=== PATIENT | female | born 1965 | race Caucasian/White ===

== ENCOUNTER → 2016-12-14 | Outpatient (CLI) | payer BC ==
[~2016-12-14] MED LIST: CALCTAB5 PO; VITAMIN
--- NOTE | 2016-12-14 15:51 | MAMMOGRAPHY REPORT ---
BILATERAL DIGITAL SCREENING MAMMOGRAM TOMOSYNTHESIS WITH CAD: 12/14/2016 CLINICAL HISTORY: Routine screening. Patient has no complaints. TECHNIQUE: Breast tomosynthesis in addition to standard 2D mammography was performed. Current study was also evaluated with a Computer Aided Detection (CAD) system. COMPARISON: Comparison is made to exams dated: 12/11/2015 mammogram, 11/21/2014 mammogram, 11/15/2013 ma mmogram, 11/07/2012 mammogram, 11/03/2011 mammogram, and 10/27/2010 mammogram - [facility]. BREAST COMPOSITION: The tissue of both breasts is extremely dense, which lowers the sensitivity of m ammography. FINDINGS: The parenchymal pattern is similar to prior mammograms. No developing mass, architectural distortion or cluster of suspicious microcalcifications is seen. IMPRESSION: ACR BI-RADS CATEGORY 2: BENIGN There is no mammographic evidence of malignancy. A 1 year screening mammogram is recommended. The pa tient will receive written notification of the results. Approximately 10% of breast cancers are not detected with mammography. A negative mammographic report should not delay biopsy if a clinically suggestive mass is present. Karli Belcher M.D. ay/:12/14/2016 15:44:09 Business Development Assistant: Liz JOSHI(R)(M), [facility] letter sent: Normal 1/2 BI-RADS Code: ACR BI-RADS Category 2: Benign
== END | disposition home or self-care (01) ==
LOC: C.MAMM 10:27
PROVIDERS: ATTEND Physician Assistant
DX: Z12.31 Encounter for screening mammogram for malignant neoplasm of breast (principal)

== ENCOUNTER 2021-12-05 11:53 | Inpatient (IN) ==
[2021-12-05] MEDS ORDERED: LORazepam 2 MG/1 ML VIAL IV STA (12:43)
[2021-12-05] MEDS ORDERED: PROCHLORPERAZINE 2 ML IV ONE (12:43)
[2021-12-05] MEDS ORDERED: SODIUM CHLORIDE 0.9% 1000ML 1,000 ML IV SCH (12:45)
--- NOTE | 2021-12-05 12:50 | Emergency Department Note ---
History of Present Illness General Chief complaint: Vertigo Stated complaint: DIZZINESS,VOMITING Time Seen by Provider: 12/05/21 12:21 History of Present Illness Maximum Pain Intensity: 10 56-year-old female presents to the ED with a chief complaint of vertigo since last Tuesday. She states that her symptoms started with a sudden onset of the room spinning associate with nausea and vomiting. She states that seem to get somewhat better and then she had another episode on . She has been vomiting through the weekend. She was here yesterday and had a work-up including blood work and CT scan of the brain. Everything was unremarkable. She was treated with some meclizine p.o. as well as some Zofran. She seemed to be feeling a little bit better when she left but states that her symptoms are significantly worse with any movement. The patient denies any injury or trauma. Denies any focal weakness. She states that she has vomited 3 times since this morning. Nothing seems to help or make it better. She did take her medicine this morning including Zofran and meclizine. Home Medications Medication Instructions Recorded Confirmed Type calcium carbonate 600 mg calcium 600 mg PO DAILY 12/04/21 12/05/21 History (1,500 mg) tablet (Calcium) multivitamin 1 tab PO DAILY 12/04/21 12/05/21 History ondansetron 4 mg disintegrating 4 mg PO Q6H PRN nausea and 12/04/21 12/05/21 Rx tablet vomiting #20 tabs vitamin E 268 mg (400 unit) capsule 268 mg PO DAILY 12/04/21 12/05/21 History Allergies Allergy/AdvReac Type Severity Reaction Status Date / Time latex Allergy Mild ALLERGY Verified 12/05/21 15:22 Penicillins Allergy Unknown Unknown Verified 12/05/21 15:22 Past Med/Surg History Medical History No significant past medical history Surgical History No history of previous surgery Social History Smoking Status: Never smoker Preferred Language: Lao Feels Safe at Home: Yes Review of Systems A total of 10 systems reviewed and were otherwise negative Physical Exam Vital Signs Vital Signs - 24 hr 12/05/21 11:57 12/05/21 13:50 12/05/21 12:44 Temperature 36.8 C Temperature Source Temporal Artery Scan Pulse Rate 66 Pulse Rate [Apical] Respiratory Rate 18 Respiratory Effort / Characteristics Respiratory Depth Blood Pressure 164/86 H Blood Pressure [Left Arm] Blood Pressure Mean 112 Blood Pressure Mean [Left Arm] Pulse Oximetry 100 98 98 Oxygen Delivery Method Room Air Room Air Room Air Sepsis Recent Fever Within 48 Hours No Sepsis New/Unexplained Change in Mental Status No Sepsis Action Taken by Nursing No Action Required 12/05/21 12:27 12/05/21 12:30 12/05/21 12:40 Temperature Temperature Source Pulse Rate 57 L 57 L 66 Pulse Rate [Apical] Respiratory Rate 13 15 Respiratory Effort / Characteristics Respiratory Depth Blood Pressure Blood Pressure [Left Arm] Blood Pressure Mean Blood Pressure Mean [Left Arm] Pulse Oximetry Oxygen Delivery Method Sepsis Recent Fever Within 48 Hours Sepsis New/Unexplained Change in Mental Status Sepsis Action Taken by Nursing 12/05/21 14:43 12/05/21 14:43 12/05/21 14:50 Temperature Temperature Source Pulse Rate 57 L 56 L Pulse Rate [Apical] Respiratory Rate 12 12 Respiratory Effort / Characteristics Respiratory Depth Blood Pressure 133/75 Blood Pressure [Left Arm] Blood Pressure Mean 94 Blood Pressure Mean [Left Arm] Pulse Oximetry Oxygen Delivery Method Sepsis Recent Fever Within 48 Hours Sepsis New/Unexplained Change in Mental Status Sepsis Action Taken by Nursing 12/05/21 15:00 12/05/21 15:00 12/05/21 15:10 Temperature Temperature Source Pulse Rate 61 55 L Pulse Rate [Apical] Respiratory Rate 21 12 Respiratory Effort / Characteristics Respiratory Depth Blood Pressure 131/73 Blood Pressure [Left Arm] Blood Pressure Mean 92 Blood Pressure Mean [Left Arm] Pulse Oximetry Oxygen Delivery Method Sepsis Recent Fever Within 48 Hours Sepsis New/Unexplained Change in Mental Status Sepsis Action Taken by Nursing 12/05/21 15:20 12/05/21 15:30 12/05/21 15:30 Temperature Temperature Source Pulse Rate 56 L 57 L Pulse Rate [Apical] Respiratory Rate 12 13 Respiratory Effort / Characteristics Respiratory Depth Blood Pressure 132/71 Blood Pressure [Left Arm] Blood Pressure Mean 91 Blood Pressure Mean [Left Arm] Pulse Oximetry Oxygen Delivery Method Sepsis Recent Fever Within 48 Hours Sepsis New/Unexplained Change in Mental Status Sepsis Action Taken by Nursing 12/05/21 15:40 12/05/21 15:50 12/05/21 16:00 Temperature Temperature Source Pulse Rate 56 L 56 L Pulse Rate [Apical] Respiratory Rate 13 13 Respiratory Effort / Characteristics Respiratory Depth Blood Pressure 110/67 Blood Pressure [Left Arm] Blood Pressure Mean 81 Blood Pressure Mean [Left Arm] Pulse Oximetry Oxygen Delivery Method Sepsis Recent Fever Within 48 Hours Sepsis New/Unexplained Change in Mental Status Sepsis Action Taken by Nursing 12/05/21 16:00 12/05/21 16:10 12/05/21 16:20 Temperature Temperature Source Pulse Rate 60 62 63 Pulse Rate [Apical] Respiratory Rate 14 15 12 Respiratory Effort / Characteristics Respiratory Depth Blood Pressure Blood Pressure [Left Arm] Blood Pressure Mean Blood Pressure Mean [Left Arm] Pulse Oximetry Oxygen Delivery Method Sepsis Recent Fever Within 48 Hours Sepsis New/Unexplained Change in Mental Status Sepsis Action Taken by Nursing 12/05/21 16:30 12/05/21 16:30 12/05/21 16:40 Temperature Temperature Source Pulse Rate 71 52 L Pulse Rate [Apical] Respiratory Rate 16 13 Respiratory Effort / Characteristics Respiratory Depth Blood Pressure 133/86 Blood Pressure [Left Arm] Blood Pressure Mean 101 Blood Pressure Mean [Left Arm] Pulse Oximetry Oxygen Delivery Method Sepsis Recent Fever Within 48 Hours Sepsis New/Unexplained Change in Mental Status Sepsis Action Taken by Nursing 12/05/21 16:50 12/05/21 17:00 12/05/21 17:00 Temperature Temperature Source Pulse Rate 54 L 55 L Pulse Rate [Apical] Respiratory Rate 12 13 Respiratory Effort / Characteristics Respiratory Depth Blood Pressure 134/69 Blood Pressure [Left Arm] Blood Pressure Mean 90 Blood Pressure Mean [Left Arm] Pulse Oximetry Oxygen Delivery Method Sepsis Recent Fever Within 48 Hours Sepsis New/Unexplained Change in Mental Status Sepsis Action Taken by Nursing 12/05/21 17:10 12/05/21 17:56 Temperature Temperature Source Pulse Rate 54 L Pulse Rate [Apical] 60 Respiratory Rate 12 16 Respiratory Effort / Characteristics Non-Labored Spontaneous Respiratory Depth Normal Blood Pressure Blood Pressure [Left Arm] 153/90 H Blood Pressure Mean Blood Pressure Mean [Left Arm] 111 Pulse Oximetry 98 Oxygen Delivery Method Room Air Room Air Sepsis Recent Fever Within 48 Hours Sepsis New/Unexplained Change in Mental Status Sepsis Action Taken by Nursing CONSTITUTIONAL/VITAL SIGNS: Reviewed / noted above. GENERAL: Non-toxic in appearance. INTEGUMENTARY: Warm, dry, and [place]. HEAD: Normocephalic. EYES: without scleral icterus or trauma. ENT/OROPHARYNX: clear and moist. LYMPHADENOPATHY/NECK: Is supple without lymphadenopathy or meningismus. RESPIRATORY: Clear to auscultation bilaterally. No increased work of breathing. CARDIOVASCULAR: Regular rate and rhythm. GI/ABDOMEN: Soft and nontender. No organomegaly or pulsatile mass. EXTREMITIES: Warm and well perfused. BACK: No CVA tenderness. NEUROLOGICAL: Intact without focal deficits. Cerebellar testing is within normal limits. Cranial nerves are intact. She does have a horizontal/rotary type nystagmus. PSYCHIATRIC: normal affect. MUSCULOSKELETAL: Normally developed with good muscle tone. TRIAGE NURSING DOCUMENTATION REVIEWED. Course Administered Medications Discontinued Medications Sodium Chloride (Nss 1000ml) 1,000 mls @ 999 mls/hr IV .Q1H1M JONAS Stop: 12/05/21 13:45 Last Infusion: 12/05/21 15:13 Dose: 0 mls/hr Documented By: Admin: 12/05/21 12:54 Dose: 999 mls/hr Documented By: HS Prochlorperazine (Compazine) 2 mls @ 1 mls/min IV ONE ONE Stop: 12/05/21 12:44 Last Admin: 12/05/21 12:54 Dose: 1 mls/min Documented By: HS Lorazepam (Lorazepam 2 Mg/1 Ml Vial) 1 mg IV NOW STA; Protocol Stop: 12/05/21 12:44 Last Admin: 12/05/21 12:54 Dose: 1 mg Documented By: HS Ondansetron HCl (Ondansetron Inj 2 Mg/Ml 2 Ml Vial) 4 mg IV NOW STA Stop: 12/05/21 17:46 Last Admin: 12/05/21 17:49 Dose: 4 mg Documented By: HS Medical Decision Making Differential Diagnosis Differential includes acute coronary syndrome, myocardial infarction, CVA, TIA, anemia, infection, pneumonia, UTI, pyelonephritis, poor nutrition, dehydration, electrolyte disturbance,hypoglycemia. Medical Records Attestation: I reviewed the patient's medical records. Home Medications Current Medication List: was personally reviewed by me Laboratory Data Attestation: I reviewed the patient's lab results. Result diagrams: 12/05/21 13:06 12/05/21 15:00 Lab Results 12/05/21 12/05/21 12/05/21 Range/Units 13:06 13:06 15:00 WBC 6.42 (4.8-10.8) K/ul RBC 4.81 (3.93-5.22) M/uL Hgb 14.3 (12.0-16.0) g/dl Hct 43.2 (34.1-44.9) % MCV 89.8 (80.0-100.0) fL MCH 29.7 (25.0-34.0) pg MCHC 33.1 (32.0-36.0) g/dL RDW Std Deviation 41.1 (36.4-46.3) fL RDW Coeff of Jose 12.5 (11.5-14.5) % Plt Count 150 (130-400) K/uL MPV 13.0 H (9.4-12.3) fL Immature Gran % (Auto) 0.3 % Neut % (Auto) 80.9 % Lymph % (Auto) 13.4 % [place] % (Auto) 5.0 % Eos % (Auto) 0.2 % Baso % (Auto) 0.2 % Neut # (Auto) 5.20 (1.4-6.5) K/uL Lymph # (Auto) 0.86 L (1.2-3.4) K/uL [place] # (Auto) 0.32 (0.24-0.82) K/uL Eos # (Auto) 0.01 (0-0.50) K/uL Baso # (Auto) 0.01 (0-0.2) K/uL Immature Gran # (Auto) 0.02 (0.00-0.02) K/uL Sodium 140 (136-145) mmol/L Potassium TNP Chloride 104 (98-107) mmol/L Carbon Dioxide 25 (21-32) mmol/L Anion Gap 11 (3-11) BUN 11 (6-23) mg/dl Creatinine 0.78 (0.6-1.2) mg/dl Est Cr Clr Drug Dosing Not Reportable Est GFR ( Amer) 99.2 ml/min Est GFR (Non-Af Amer) 85.6 ml/min BUN/Creatinine Ratio 14.1 (10-20) Glucose 106 H (70-99(Fasting)) mg/dl Calcium 9.3 (8.5-10.1) mg/dl Magnesium 2.0 (1.7-2.4) mg/dl Total Bilirubin 0.7 (0.2-1.0) mg/dl AST TNP ALT 8 (7-52) U/L Alkaline Phosphatase 56 (34-104) U/L Total Protein 7.3 (6.0-8.3) gm/dl Albumin 4.3 (3.4-5.0) gm/dl Globulin 3.0 (2.5-4.0) gm/dl Albumin/Globulin Ratio 1.4 (0.9-2) TSH 2.759 (0.300-4.500) uIu/ml 12/05/21 Range/Units 15:00 WBC (4.8-10.8) K/ul RBC (3.93-5.22) M/uL Hgb (12.0-16.0) g/dl Hct (34.1-44.9) % MCV (80.0-100.0) fL MCH (25.0-34.0) pg MCHC (32.0-36.0) g/dL RDW Std Deviation (36.4-46.3) fL RDW Coeff of Jose (11.5-14.5) % Plt Count (130-400) K/uL MPV (9.4-12.3) fL Immature Gran % (Auto) % Neut % (Auto) % Lymph % (Auto) % [place] % (Auto) % Eos % (Auto) % Baso % (Auto) % Neut # (Auto) (1.4-6.5) K/uL Lymph # (Auto) (1.2-3.4) K/uL [place] # (Auto) (0.24-0.82) K/uL Eos # (Auto) (0-0.50) K/uL Baso # (Auto) (0-0.2) K/uL Immature Gran # (Auto) (0.00-0.02) K/uL Sodium (136-145) mmol/L Potassium 3.4 L Chloride (98-107) mmol/L Carbon Dioxide (21-32) mmol/L Anion Gap (3-11) BUN (6-23) mg/dl Creatinine (0.6-1.2) mg/dl Est Cr Clr Drug Dosing Est GFR ( Amer) ml/min Est GFR (Non-Af Amer) ml/min BUN/Creatinine Ratio (10-20) Glucose (70-99(Fasting)) mg/dl Calcium (8.5-10.1) mg/dl Magnesium (1.7-2.4) mg/dl Total Bilirubin (0.2-1.0) mg/dl AST 14 ALT (7-52) U/L Alkaline Phosphatase (34-104) U/L Total Protein (6.0-8.3) gm/dl Albumin (3.4-5.0) gm/dl Globulin (2.5-4.0) gm/dl Albumin/Globulin Ratio (0.9-2) TSH (0.300-4.500) uIu/ml Imaging Data Radiologist's Impression: Brain MRI 12/05/21 12:45 Brain MRI WITHOUT CONTRAST HISTORY: Dizziness. vertigo sx TECHNIQUE: Multiplanar multisequence MRI of the brain was performed without the use of contrast. COMPARISON STUDY: Head CT 12/04/2021. FINDINGS: There are no areas of restricted diffusion to suggest acute infarction. The midline structures are intact. Mild mucosal thickening within the right maxillary sinus. Evidence for prior bilateral lens replacement. There are few scattered punctate foci of T2 hyperintensity seen within the periventricular white matter of the supratentorial brain. These likely represent age-related microvascular ischemic change and are of doubtful clinical significance. The mastoid air cells are clear. The ventricles and sulci are within normal limits for age. There is no mass, hematoma, midline shift. The major vascular flow-voids at the skull base are well maintained. IMPRESSION: No acute intracranial abnormality. ACT 112: Negative or not required by law. Electronically signed by: Rupesh Carlos M.D. 12/05/2021 2:41 PM MDM Narrative 56-year-old female presents with ongoing vertigo symptoms despite medications. She does have nystagmus on my exam. Vital signs reveal hypertension. A brain MRI today did not show any concerning abnormalities. Blood work was also unremarkable. The patient was treated with Zofran initially as well as some IV fluids. She was also given IV Compazine and Ativan. She was given another dose of IV Zofran for ongoing nausea/vomiting and vertigo after she awoke from a nap. The patient is going to require admission and further evaluation as an inpatient for intractable vertigo and vomiting. Impression & Plan Vertigo, Vomiting Discharge Plan Visit Data Chief Complaint: Vertigo Stated Complaint: DIZZINESS,VOMITING ED Provider: Pedrito Lauren Discharge Problem: Vertigo, Vomiting Patient Disposition: Being Evaluated by Hospitalist Forms Stand Alone Forms: [facility] Prescriptions Prescriptions: No Action multivitamin Tablet 1 tab PO DAILY calcium carbonate [Calcium 600] 600 mg calcium (1,500 mg) Tablet 600 mg PO DAILY vitamin E 268 mg (400 unit) Capsule 268 mg PO DAILY ondansetron 4 mg tablet,disintegrating 4 mg PO Q6H PRN (Reason: nausea and vomiting) Qty: 20 0RF Referrals Referrals: Alta Garcia PA-C [Primary Care Provider] -
[2021-12-05 13:36] LABS: Hematocrit (blood only) 43.2 % (34.1-44.9); Hemoglobin 14.3 g/dl (12.0-16.0); Mean Corpuscular Hemoglobin 29.7 pg (25.0-34.0); Mean Corpuscular Hgb Conc 33.1 g/dL (32.0-36.0); Mean Corpuscular Volume 89.8 fL (80.0-100.0); Platelet Count 150 K/uL (130-400); RDW Coefficient of Variation 12.5 % (11.5-14.5); RDW Standard Deviation 41.1 fL (36.4-46.3); Red Blood Count 4.81 M/uL (3.93-5.22); White Blood Count 6.42 K/ul (4.8-10.8)
[2021-12-05 13:45] LABS: Basophils # (auto) 0.01 K/uL (0-0.2); Basophils % (auto) 0.2 %; Eosinophils # (auto) 0.01 K/uL (0-0.50); Eosinophils % (auto) 0.2 %; Immature Granulocytes # (auto) 0.02 K/uL (0.00-0.02); Immature Granulocytes % (auto) 0.3 %; Lymphocytes # (auto) 0.86 K/uL (1.2-3.4); Lymphocytes % (auto) 13.4 %; Monocytes # (auto) 0.32 K/uL (0.24-0.82); Neutrophils % (auto) 80.9 %
--- NOTE | 2021-12-05 14:43 | Magnetic Resonance Report ---
Brain MRI WITHOUT CONTRAST HISTORY: Dizziness. vertigo sx TECHNIQUE: Multiplanar multisequence MRI of the brain was performed without the use of contrast. COMPARISON STUDY: Head CT 12/04/2021. FINDINGS: There are no areas of restricted diffusion to suggest acute infarction. The midline structu res are intact. Mild mucosal thickening within the right maxillary sinus. Evidence for prior bilatera l lens replacement. There are few scattered punctate foci of T2 hyperintensity seen within the perive ntricular white matter of the supratentorial brain. These likely represent age-related microvascular ischemic change and are of doubtful clinical significance. The mastoid air cells are clear. The ventr icles and sulci are within normal limits for age. There is no mass, hematoma, midline shift. The abraham r vascular flow-voids at the skull base are well maintained. IMPRESSION: No acute intracranial abnormality. ACT 112: Negative or not required by law. Electronically signed by: Rupesh Carlos M.D. 12/05/2021 2:41 PM
[2021-12-05 14:45] LABS: Alanine Aminotransferase 8 U/L (7-52); Albumin Globulin Ratio 1.4 (0.9-2); Albumin Level 4.3 gm/dl (3.4-5.0); Alkaline Phosphatase 56 U/L (34-104); Anion Gap 11 (3-11); BUN Creatinine Ratio 14.1 (10-20); Bilirubin,Total 0.7 mg/dl (0.2-1.0); Blood Urea Nitrogen 11 mg/dl (6-23); Calcium 9.3 mg/dl (8.5-10.1); Carbon Dioxide 25 mmol/L (21-32); Chloride 104 mmol/L (98-107); Est GFR (African American) 99.2 ml/min; Est GFR (Non-African American) 85.6 ml/min; Glucose 106 mg/dl (70-99(Fasting)); Sodium 140 mmol/L (136-145); Total Protein 7.3 gm/dl (6.0-8.3)
[2021-12-05 15:40] LABS: Potassium 3.4 mmol/L (3.5-5.1)
[2021-12-05] MEDS ORDERED: ONDANSETRON INJ 2 MG/ML 2 ML VIAL IV STA (17:45)
--- NOTE | 2021-12-05 18:23 | History & Physical Report ---
Date of Service December 05, 2021 Assessment & Plan (1) Vertigo: (2) Vomiting: (3) Dizziness: Plan: - Admit to med surg -Likely vertigo, consider PT/OT to perform Samantha maneuver during hospitalization -Continue antiemetics, meclizine, replace potassium -Consult neurology, appears to be peripheral vertigo versus central cause -Continue IV fluids for hydration -CT head from 12/04 is negative, MRI of the brain from today is negative (4) Hypokalemia: Plan: -Replace with IV potassium as patient is unable to tolerate p.o. intake due to nausea/vomiting - Follow with am labs DVT ppx: - teds, scds, heparin subcu CODE: Full code Dispo: From home, likely to remain in the hospital x 1-2 days History of Present Illness Chief Complaint: Vertigo Primary Care Provider: Alta Garcia PA-C This is a 56 yo F with PMHx of MVP, pulmonic stenosis, cataracts s/p multiple eye injections who presents to the hospital with complaints of dizziness, nausea and vomiting. She has noted worsening vertiginous symptoms including dizziness, nausea and vomiting with minimal movements, and photosensitivity since last Tuesday, she deniess headache or sensitivity to sound. She came to the ER yesterday, 12/04 with similar complaints and was treated with meclizine, Zofran and felt improved but not completely back to baseline and went home. She notes that during her trip in the ER bed to CT scanner, the movements around the hallway with turning exacerbated her symptoms. Her symptoms persisted at home after discharge, and due to continued nausea and vomiting, she came back to the ER. She again today has fears of being moved in bed both on wheels and with literal transfer into another bed from the ER to going upstairs for admission. She has not been able to take any of her home medications for several days now due to his nausea. Pt reports minimal intake of food/drink, and has not had a BM since Tuesday, no changes in urination habits. She has not had any recent viral illnesses, gastrointestinal or respiratory illnesses. Pt denies any issues with walking or standing today. Pt lives at home by herself. Allergies Allergy/AdvReac Type Severity Reaction Status Date / Time latex Allergy Mild ALLERGY Verified 07/16/22 15:22 Penicillins Allergy Unknown Unknown Verified 12/05/21 15:22 Home Medications Medication Instructions Recorded Confirmed Type calcium carbonate 600 mg calcium 600 mg PO DAILY 12/04/21 12/05/21 History (1,500 mg) tablet (Calcium) multivitamin 1 tab PO DAILY 12/04/21 12/05/21 History ondansetron 4 mg disintegrating 4 mg PO Q6H PRN nausea and 12/04/21 12/05/21 Rx tablet vomiting #20 tabs vitamin E 268 mg (400 unit) capsule 268 mg PO DAILY 12/04/21 12/05/21 History Past Med/Surg History Medical History (Updated 12/05/21 @ 19:45 by Parisa Nielson PA-C) Alopecia areata Mitral valve prolapse Progressive high myopia Pulmonic stenosis Surgical History (Updated 12/05/21 @ 18:19 by Parisa Nielson PA-C) Hx of cataract surgery Family History (Updated 12/05/21 @ 18:20 by Parisa Nielson PA-C) Mother Hypertension Cancer Father Hypertension Diabetes Grandfather (Maternal) Diabetes Social History Smoking Status: Never smoker Second Hand Exposure: No; Do You Dip or Chew Tobacco: No; Tobacco Cessation Education Requested by Patient: No Hx Alcohol Use: Yes Alcohol type: wine Hx Substance Use: No Preferred Language: Citizen Of [place] Communication Ability: Effective Warehouse Associate Required: No Beliefs That Will Affect Care: None Current Living Situation: Alone Other Information That Helps Us Care for You: No Feels Safe at Home: Yes Safety Concerns: Feels Safe At This Time Assistive Devices: Glasses Review of Systems Review of Systems: Constitutional: No fever, sweats or chills, + dizzy Eyes: No diplopia, no worsening or blurred vision ENT: normal hearing, no trouble swallowing Respiratory: No cough, sputum, dyspnea at rest or on exertion Cardiovascular: No chest pain, tightness or palpitations Abdomen: No pain, +nausea, +vomiting, no diarrhea, last BM was 5d ago Musculoskeletal: No joint pain, calf pain, swelling Neurologic: No weakness, numbness/tingling, or balance problems Psychiatric: No anxiety or depression Skin: No rash or itch Physical Exam Physical Exam: General: awake, alert, keeps eyes closed during my exam, does not want to move, laying on her right side in the position. Requests the lights remain off. Thin. Head: Normocephalic, atraumatic ENT: PERRL, EOMI, no pharyngeal exudate, mucous membranes moist Chest: Clear to auscultation, on room air, no adventitious breath sounds Cardiac: Regular rate and rhythm, no murmur, no JVD, normal peripheral pulses, good capillary refill Abdominal: NABS x 4 quadrants, soft, nondistended, nontender to palpation, no rebound or guarding Extremities: Normal inspection, no peripheral edema or erythema, calfs nontender to palpation Psych: Normal mood and affect Neuro: AAO x 3, strength intact bilaterally and rated 4/5, no motor deficits, speech is clear, no peripheral sensory deficits Results & Data Results & Data ([facility]) Vital Signs (Past 12 Hours) Vital Signs Temp Pulse Pulse Resp BP BP Pulse Ox 12/05/21 17:56 60 16 153/90 H 98 12/05/21 17:10 54 L 12 12/05/21 17:00 55 L 13 12/05/21 17:00 134/69 12/05/21 16:50 54 L 12 12/05/21 16:40 52 L 13 12/05/21 16:30 71 16 12/05/21 16:30 133/86 12/05/21 16:20 63 12 12/05/21 16:10 62 15 12/05/21 16:00 60 14 12/05/21 16:00 110/67 12/05/21 15:50 56 L 13 12/05/21 15:40 56 L 13 12/05/21 15:30 57 L 13 12/05/21 15:30 132/71 12/05/21 15:20 56 L 12 12/05/21 15:10 55 L 12 12/05/21 15:00 61 21 12/05/21 15:00 131/73 12/05/21 14:50 56 L 12 12/05/21 14:43 57 L 12 12/05/21 14:43 133/75 12/05/21 12:40 66 15 12/05/21 12:30 57 L 12/05/21 12:27 57 L 13 12/05/21 12:44 98 12/05/21 13:50 98 12/05/21 11:57 36.8 C 66 18 164/86 H 100 O2 Del Method 12/05/21 17:56 Room Air 12/05/21 17:10 Room Air 12/05/21 17:00 12/05/21 17:00 12/05/21 16:50 12/05/21 16:40 12/05/21 16:30 12/05/21 16:30 12/05/21 16:20 12/05/21 16:10 12/05/21 16:00 12/05/21 16:00 12/05/21 15:50 12/05/21 15:40 12/05/21 15:30 12/05/21 15:30 12/05/21 15:20 12/05/21 15:10 12/05/21 15:00 12/05/21 15:00 12/05/21 14:50 12/05/21 14:43 12/05/21 14:43 12/05/21 12:40 12/05/21 12:30 12/05/21 12:27 12/05/21 12:44 Room Air 12/05/21 13:50 Room Air 12/05/21 11:57 Room Air Laboratory Results 12/05/21 12/05/21 12/05/21 17:50 15:00 15:00 WBC RBC Hgb Hct MCV MCH MCHC RDW Std Deviation RDW Coeff of Jose Plt Count MPV Immature Gran % (Auto) Neut % (Auto) Lymph % (Auto) Durham % (Auto) Eos % (Auto) Baso % (Auto) Neut # (Auto) Lymph # (Auto) [place] # (Auto) Eos # (Auto) Baso # (Auto) Immature Gran # (Auto) Sodium Potassium 3.4 L Chloride Carbon Dioxide Anion Gap BUN Creatinine Est Cr Clr Drug Dosing Est GFR ( Amer) Est GFR (Non-Af Amer) BUN/Creatinine Ratio Glucose Calcium Magnesium Total Bilirubin AST 14 ALT Alkaline Phosphatase Total Protein Albumin Globulin Albumin/Globulin Ratio TSH 2.759 SARS-CoV-2, RNA, NAAT NEGATIVE 12/05/21 12/05/21 13:06 13:06 WBC 6.42 RBC 4.81 Hgb 14.3 Hct 43.2 MCV 89.8 MCH 29.7 MCHC 33.1 RDW Std Deviation 41.1 RDW Coeff of Jose 12.5 Plt Count 150 MPV 13.0 H Immature Gran % (Auto) 0.3 Neut % (Auto) 80.9 Lymph % (Auto) 13.4 Durham % (Auto) 5.0 Eos % (Auto) 0.2 Baso % (Auto) 0.2 Neut # (Auto) 5.20 Lymph # (Auto) 0.86 L Durham # (Auto) 0.32 Eos # (Auto) 0.01 Baso # (Auto) 0.01 Immature Gran # (Auto) 0.02 Sodium 140 Potassium TNP Chloride 104 Carbon Dioxide 25 Anion Gap 11 BUN 11 Creatinine 0.78 Est Cr Clr Drug Dosing Not Reportable Est GFR ( Amer) 99.2 Est GFR (Non-Af Amer) 85.6 BUN/Creatinine Ratio 14.1 Glucose 106 H Calcium 9.3 Magnesium 2.0 Total Bilirubin 0.7 AST TNP ALT 8 Alkaline Phosphatase 56 Total Protein 7.3 Albumin 4.3 Globulin 3.0 Albumin/Globulin Ratio 1.4 TSH SARS-CoV-2, RNA, NAAT Diagnostic Findings Brain MRI 12/05/21 12:45 Brain MRI WITHOUT CONTRAST HISTORY: Dizziness. vertigo sx TECHNIQUE: Multiplanar multisequence MRI of the brain was performed without the use of contrast. COMPARISON STUDY: Head CT 12/04/2021. FINDINGS: There are no areas of restricted diffusion to suggest acute infarction. The midline structures are intact. Mild mucosal thickening within the right maxillary sinus. Evidence for prior bilateral lens replacement. There are few scattered punctate foci of T2 hyperintensity seen within the periventricular white matter of the supratentorial brain. These likely represent age-related microvascular ischemic change and are of doubtful clinical significance. The mastoid air cells are clear. The ventricles and sulci are within normal limits for age. There is no mass, hematoma, midline shift. The major vascular flow-voids at the skull base are well maintained. IMPRESSION: No acute intracranial abnormality. ACT 112: Negative or not required by law. Electronically signed by: Rupesh Carlos M.D. 12/05/2021 2:41 PM Code Status & VTE Plan Code Status Full code Supervising Physician Co-Signing Physician Notes Care coordinated with Nisreen Mccauley PA-C. Agree with above note. Patient seen and examined. Please refer to her notes for full details. Vital signs reviewed. Physical exam: General exam: Alert and oriented. Not in acute distress. EYEs: Horizontal nystagmus present CVS: S1 and S2 heard, regular rate and rhythm, no murmurs. RS: Clear to auscultation, no wheezing or crackles. ABD: Soft, bowel sounds present, nontender, no distention. ROLLER COASTER DESIGNER: Nonfocal. EXT: No edema, no erythema. Labs: Reviewed. Assessment and plan: 56F presents with ongoing severe dizziness, nausea since last tuesday. Was in Er 12/04 tretaed and felt fine and was dischaged. But at home syptoms not getting bettr. earlier room was spinning but now she feels room osicillating. Not moving mucg and not eating much. denies any recent viral illness. No chest pain or sob or cough. Afebrile. Vertigo MRI ok Possible vestibular neuritis Neurology consulted-await input meclizine and compazine prn Other diagnosis and plan of care as per Nisreen Mccauley PA-C. Frantz jenkins MD.
[2021-12-05] MEDS ORDERED: PROCHLORPERAZINE 10 MG in SYRINGE 8 ML IV PRN (20:29)
[2021-12-05] MEDS ORDERED: MECLIZINE HCL 25 MG TAB PO PRN (20:29)
[2021-12-05] MEDS ORDERED: PROMETHAZINE HCL 6.25 MG in SODIUM CHLORIDE 0.9% 50 ML IV PRN (20:29)
[2021-12-05] MEDS ORDERED: ACETAMINOPHEN 325 MG TAB PO PRN (20:29)
[2021-12-05] MEDS: SODIUM CHLORIDE 0.9% 1000ML 1,000 ML IV SCH (20:29)
[2021-12-05] MEDS: POTASSIUM CHLORIDE / WTR 10 MEQ/100 ML PLCT IV SCH ×2 (20:45→22:58)
[2021-12-05] MEDS: HEPARIN SOD 5,000 UNIT/0.5 ML VIAL SQ SCH (21:51)
[2021-12-06] MEDS: SODIUM CHLORIDE 0.9% 1000ML 1,000 ML IV SCH (07:17)
[2021-12-06 07:57] LABS: Hematocrit (blood only) 38.1 % (34.1-44.9); Hemoglobin 12.5 g/dl (12.0-16.0); Mean Corpuscular Hemoglobin 29.1 pg (25.0-34.0); Mean Corpuscular Hgb Conc 32.8 g/dL (32.0-36.0); Mean Corpuscular Volume 88.8 fL (80.0-100.0); Mean Platelet Volume 12.6 fL (9.4-12.3); Platelet Count 147 K/uL (130-400); RDW Coefficient of Variation 12.4 % (11.5-14.5); RDW Standard Deviation 40.2 fL (36.4-46.3); Red Blood Count 4.29 M/uL (3.93-5.22); White Blood Count 6.14 K/ul (4.8-10.8)
[2021-12-06 08:20] LABS: Albumin Globulin Ratio 1.5 (0.9-2); Albumin Level 3.6 gm/dl (3.4-5.0); BUN Creatinine Ratio 15.4 (10-20); Bilirubin,Total 0.5 mg/dl (0.2-1.0); Calcium 8.5 mg/dl (8.5-10.1); Creatinine Clr Calc Pharmacy 78.5 ml/min; Est GFR (African American) 99.2 ml/min; Est GFR (Non-African American) 85.6 ml/min; Globulin 2.4 gm/dl (2.5-4.0); Potassium 3.4 mmol/L (3.5-5.1)
[2021-12-06] MEDS: ONDANSETRON INJ 2 MG/ML 2 ML VIAL IV PRN ×3 (08:50→22:58)
[2021-12-06] MEDS: HEPARIN SOD 5,000 UNIT/0.5 ML VIAL SQ SCH ×2 (08:57→20:19)
--- NOTE | 2021-12-06 14:27 | Consultation Report ---
REASON FOR CONSULTATION: Dizziness. HISTORY OF PRESENT ILLNESS: The patient is a 56-year-old right-handed female without significant med ical history other than car sickness. On this background, she began to have vertigo of 2 or 3 days p rior to admission. She initially noticed it when she was in bed and it was associated with spinning and vomiting. She did not necessarily ever note any double vision, slurred speech, unilateral weakne ss or numbness. She has rare nonpulsatile tinnitus. No ear pain, ringing or hearing loss. She was seen earlier in the week at the hospital and was discharged after being treated with meclizine and Zo cecy, but she returned yesterday for persistent symptoms. She noticed that the symptoms are worse wi th moving and better holding still, but does not note any particular direction. She has not been abl e to take much by mouth and probably lost about 3 pounds. There is no head or neck injury, chiroprac tic manipulation of her neck. There is no family history of the same. PAST MEDICAL HISTORY: Alopecia areata, mitral valve prolapse, progressive high myopia, pulmonic sten osis, history of cataract surgery. FAMILY HISTORY: No Meniere's. Mother, hypertension, cancer. Father, hypertension, diabetes. Grand father, diabetes. SOCIAL HISTORY: Nonsmoker. The patient drinks wine. REVIEW OF SYSTEMS: Per per admitting H and P, no fevers, chills, sweats. There has been some mild h eadache. No cough, chest pain, abdominal pain, joint pain, calf pain, swelling, weakness, numbness, tingling, anxiety, depression, rash. ALLERGIES: TO LATEX AND PENICILLIN. DIAGNOSTIC TESTING: Notable for normal white count, H and H, and platelet count. Potassium 3.4, gluc ose 106. MRI of the brain, which I have reviewed, noncontrast, does not show any acute abnormality. There are minor white matter changes consistent with age-related microvascular changes. CTA was not performed . PHYSICAL EXAMINATION: On examination, 151/84, 65, 14, 36.9, 97%. The patient is awake and alert. S he lies in bed with her eyes closed. There are no carotid bruits, no heart murmurs. Heart is regula r rate and rhythm. Gross hearing is intact. Abdomen is soft and nontender. Her pupils are post-margret gical. I could not reliably visualize the optic nerves. There appears to be rotary nystagmus, worse on left gaze with a fast phase toward the left in all directions of view. This, at times, is even p resent at rest. Motility otherwise appeared normal. Normal visual ferguson, facial sensation, facial symmetry. There may be a minor flattening of the right nasolabial fold, but it appears to be longsta nding. Tongue midline. Speech is nondysarthric. Motor is 5/5, no drift. Normal rapid alternating movements. Litcow-[id number], qzqt-us-[id number] are normal. Symmetric reflexes, downgoing toes. No dysdiad ochokinesia. Gait was not tested. The patient appeared to have positive provocative head maneuvers with head hanging to the right with immediate vertigo, but then latency and fatigability. This repro duced her symptoms. IMPRESSION AND PLAN: Presumed right BPPV. No objection to Zofran, meclizine, but recommend Samantha knapp with physical therapy. We will follow with you. Job ID: [id number]
--- NOTE | 2021-12-06 18:28 | Hospitalist Progress Note ---
Date of Service December 06, 2021 Assessment & Plan (1) Vertigo: Plan: Most consistent with BPPV MRI brain unremarkable Improved after Samantha maneuver by PT. Patient would benefit from OP vestibular therapy -PRN meclizine (2) Vomiting: Plan: -likely due to above -PRN zofran and phenergan ordered (3) Dizziness: (4) Hypokalemia: Plan: -Replete PRN DVT ppx: - teds, scds, heparin subcu CODE: Full code Possibly discharge tomorrow if nausea and dizziness subsides Admission and Anticipated Discharge Date Admission Date: December 05, 2021 Subjective Had Samantha manuever by PT today, post manuever she had less vertigo Less vertigo but still with ongoing nausea, multiple episodes of vomiting Physical Exam Physical Exam: Laying on her left side in position, appears very nauseous, eyes are closed Respiratory: Breathing comfortably on room air, no wheezing/rhonchi Cardiovascular: regular rate and rhythm, no murmurs/rubs Gastrointestinal (Abdomen): soft, non tender Musculoskeletal: No edema Neurologic: awake, alert, answering questions appropriately, remaining exam deferred due to patient nausea Results & Data Results & Data ([facility]) Vital Signs (Past 12 Hours) Vital Signs Temp Pulse Resp BP Pulse Ox O2 Del Method 12/06/21 15:38 161/91 H 12/06/21 15:16 36.6 C 57 L 14 183/90 H 98 Room Air 12/06/21 07:18 Room Air 12/06/21 07:04 36.9 C 65 14 151/84 H 97 Room Air Laboratory Results Short CBC 12/06/21 Range/Units 07:27 WBC 6.14 (4.8-10.8) K/ul Hgb 12.5 (12.0-16.0) g/dl Hct 38.1 (34.1-44.9) % Plt Count 147 (130-400) K/uL BMP 12/06/21 07:27 Sodium 139 Potassium 3.4 L Chloride 105 Carbon Dioxide 28 BUN 12 Creatinine 0.78 Glucose 93 Calcium 8.5 Liver Function 12/06/21 Range/Units 07:27 Total Bilirubin 0.5 (0.2-1.0) mg/dl AST 11 L (13-39) U/L ALT 7 (7-52) U/L Alkaline Phosphatase 50 (34-104) U/L Albumin 3.6 (3.4-5.0) gm/dl Medications Administered Current Inpatient Medications Acetaminophen (Acetaminophen 325 Mg Tab) 650 mg PO Q4H PRN PRN Reason: Moderate Pain Stop: 01/04/22 20:28 Heparin Sodium (Porcine) (Heparin Sod 5,000 Unit/0.5 Ml Vial) 5,000 units SQ Q12 JONAS Stop: 01/04/22 20:59 Last Admin: 12/06/21 08:57 Dose: Not Given Prochlorperazine 10 mg/ (Syringe) 10 mls @ 5 mls/min IV Q6H PRN PRN Reason: Nausea And Vomiting Stop: 01/04/22 20:28 Last Admin: 12/06/21 17:10 Dose: 5 mls/min Sodium Chloride (Nss 1000ml) 1,000 mls @ 80 mls/hr IV .[id number] JONAS Stop: 12/06/21 21:28 Last Infusion: 12/06/21 18:04 Dose: Infused Promethazine HCl 6.25 mg/ (Sodium Chloride) 50.25 mls @ 201 mls/hr IV Q6H PRN PRN Reason: Nausea And Vomiting Stop: 01/04/22 20:28 Meclizine HCl (Meclizine Hcl 25 Mg Tab) 25 mg PO Q6H PRN PRN Reason: dizziness Stop: 01/04/22 20:28 Ondansetron HCl (Ondansetron Inj 2 Mg/Ml 2 Ml Vial) 4 mg IV Q4H PRN PRN Reason: Nausea And Vomiting Stop: 01/04/22 20:28 Last Admin: 12/06/21 13:31 Dose: 4 mg
[2021-12-07 08:01] LABS: BUN Creatinine Ratio 22.2 (10-20); Calcium 8.6 mg/dl (8.5-10.1); Creatinine Clr Calc Pharmacy 97.2 ml/min; Magnesium 1.9 mg/dl (1.7-2.4); Phosphorus 3.2 mg/dl (2.5-4.9); Potassium 3.4 mmol/L (3.5-5.1)
[2021-12-07] MEDS: POTASSIUM CHLORIDE / WTR 10 MEQ/100 ML PLCT IV SCH ×2 (08:55→10:14)
[2021-12-07] MEDS: HEPARIN SOD 5,000 UNIT/0.5 ML VIAL SQ SCH ×2 (08:58→21:06)
[2021-12-07] MEDS ORDERED: PROCHLORPERAZINE 10 MG in SYRINGE 8 ML IV SCH (09:16)
[2021-12-07] MEDS ORDERED: PROCHLORPERAZINE 10 MG in SYRINGE 8 ML IV PRN (09:18)
[2021-12-07] MEDS: PROMETHAZINE HCL 6.25 MG in SODIUM CHLORIDE 0.9% 50 ML IV SCH ×3 (10:30→20:56)
[2021-12-07] MEDS ORDERED: OPTIRAY 320 125ml IV ONE (11:53)
--- NOTE | 2021-12-07 12:22 | CT Scan Report ---
NECK CTA HISTORY: ongoing dizziness TECHNIQUE: Multiaxial CT images of the neck were performed following the intravenous administration o f contrast to evaluate the major cervical vessels. Maximum intensity projection images were also obta ined. All measurements were calculated based on NASCET criteria. A dose lowering technique was utili zed adhering to the principles of ALARA. COMPARISON STUDY: None. FINDINGS: The aortic arch and proximal great vessels are widely patent. There is no significant sten osis, occlusion, or dissection identified within the bilateral common carotid, internal carotid, or v ertebral arteries. There is a 7 x 7 x 4 mm saccular aneurysm within the medial aspect of the distal l eft cervical internal carotid artery. This is approximately 7 mm from the skull base. The lung apices are clear. IMPRESSION: 1. No significant stenosis, occlusion, or dissection identified within the carotid or vertebral arter ies. 2. 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 ACT 112: Negative or not required by law. Electronically signed by: Rupesh Carlos M.D. 12/07/2021 12:18 PM
--- NOTE | 2021-12-07 12:33 | Neurology Progress Note ---
Date of Service December 07, 2021 Assessment & Plan (1) Vertigo: Plan: 1. recommend meclizine prn 2. Jose - PT and home exercises 3. can refer to outpatient PT and balance center and ENT if needed 4. MRI no lesions or stroke 5. CTA neck-ICAS aneurysm, rec pt see vascular NS with 4-6 weeks Admission and Anticipated Discharge Date Admission Date: December 06, 2021 Supervising Physician Co-Signing Physician Notes I have seen and discussed above patient with Dr Catrina Muro, neurology< Pt seen and examined. Improved with jose but still symptomatic, worse with movement. Pt does not want to be examined. there is horizon nystagmus on left gaze with fast phase to left.. Imp presumed peripheral labrynthopathy. Rec bal ance clinic and repeat mri brain attn iac with and without if sx persist re ica aneurysm, vasc neurosurg consult within next 4-6 weeks. Pt should see us in follow-up if symptoms persist. MD Naeem Kurt Alvarado is a 56 year old right handed female without significant PMH other than car sickness.She began to have vertigo of 2 or 3 days prior to admission.She initially noticed it when she was in bed and it was associated with spinning and vomiting. She did not necessarily ever note any double vision, slurred speech, unilateral weakness or numbness. She was seen earlier in the week at the hospital and was discharged after being treated with meclizine and Zofran, but she returned yesterday for persistent symptoms. She noticed that the symptoms are worse with moving and better holding still, but does not note any particular direction. She has not been able to take much by mouth and probably lost about 3 pounds. There is no head or neck injury, chiropractic manipulation of her neck. She has been up walking today and is feeling better. She also had PT Jose. She is hoping to be able to eat and go home tomorrow. she lives alone and has 2 dogs but friends volunteered to help. denies CP, SOB, abdominal pain N, V. Review of Systems Review of Systems: All systems reviewed & are unremarkable except as noted in HPI & below Physical Exam Physical Exam: Physical Exam: Constitutional: appearance nourished, healthy and normal Ears, Nose, Mouth and Throat: mucous membranes moist, no injection and skin normal, eyes normal Cardiovascular: normal S-1 and S-2 and regular rate and rhythm Respiratory: clear to auscultation (CTA) and no rales, rhonchi or wheeze Musculoskeletal: no peripheral edema and good distal pulses Skin: no stigmata of neurocutaneous disease noted and normal and intact NEUROLOGIC EXAMINATION: Mental status: Alert and interactive Oriented to full date and location Oriented to person Speech fluent with no evidence of aphasia Cranial Nerves smile eye brow raise symmetric Gait/Stance: Posture lying in bed Results & Data ([facility]) Vital Signs (Past 12 Hours) Vital Signs Temp Pulse Resp BP Pulse Ox 12/07/21 08:13 36.7 C 56 L 16 160/90 H 98 Laboratory Results Abnormal lab results 12/07/21 Range/Units 07:08 Potassium 3.4 L (3.5-5.1) mmol/L BUN/Creatinine Ratio 22.2 H (10-20) Diagnostic Findings MRI brain-No acute intracranial abnormality. CTA neck-No significant stenosis, occlusion, or dissection identified within the carotid or vertebral arteries. 2. 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
[2021-12-07] MEDS: MECLIZINE HCL 25 MG TAB PO SCH ×2 (14:20→21:06)
--- NOTE | 2021-12-07 19:08 | Hospitalist Progress Note ---
Date of Service December 07, 2021 Assessment & Plan (1) Vertigo: Plan: Most consistent with BPPV MRI brain unremarkable Improved after Samantha maneuver by PT. Patient would benefit from OP vestibular therapy -start scheduled meclizine 25mg TID -CTA neck shows left distal ICA saccular aneurysm, appreciate Neurology input--recommend OP follow up with Neurovascular surgery (2) Vomiting: Plan: -likely due to above -scheduled phenergan -PRN zofran (3) Dizziness: (4) Hypokalemia: Plan: -Replete PRN DVT ppx: - teds, scds, heparin subcu CODE: Full code Possibly discharge tomorrow if nausea and dizziness subsides Admission and Anticipated Discharge Date Admission Date: December 06, 2021 Subjective Still having vertigo with head movement Nausea improved Physical Exam Physical Exam: Laying in bed, appears uncomfortable, non toxic Respiratory: breathing comfortably on room air, no wheezing/rhonchi Cardiovascular: regular rate and rhythm, no murmurs/rubs/gallops Gastrointestinal (Abdomen): soft, non tender Musculoskeletal: No edema Neurologic: awake, alert, spontaneously moving extremities Results & Data Results & Data ([facility]) Vital Signs (Past 12 Hours) Vital Signs Temp Pulse Resp BP Pulse Ox 12/07/21 15:14 36.5 C 53 L 16 165/87 H 98 12/07/21 08:13 36.7 C 56 L 16 160/90 H 98 Laboratory Results [facility] 12/07/21 07:08 Sodium 137 Potassium 3.4 L Chloride 104 Carbon Dioxide 25 BUN 14 Creatinine 0.63 Glucose 86 Calcium 8.6 Medications Administered Current Inpatient Medications Acetaminophen (Acetaminophen 325 Mg Tab) 650 mg PO Q4H PRN PRN Reason: Moderate Pain Stop: 01/04/22 20:28 Heparin Sodium (Porcine) (Heparin Sod 5,000 Unit/0.5 Ml Vial) 5,000 units SQ Q12 JONAS Stop: 01/04/22 20:59 Last Admin: 12/07/21 08:58 Dose: 5,000 units Prochlorperazine 10 mg/ (Syringe) 10 mls @ 5 mls/min IV Q6H PRN PRN Reason: Nausea Stop: 01/06/22 09:14 Promethazine HCl 6.25 mg/ (Sodium Chloride) 50.25 mls @ 201 mls/hr IV Q6H JONAS Stop: 01/06/22 09:29 Last Infusion: 12/07/21 17:13 Dose: Infused Meclizine HCl (Meclizine Hcl 25 Mg Tab) 25 mg PO TID [facility] Stop: 01/06/22 13:59 Last Admin: 12/07/21 14:20 Dose: 25 mg Ondansetron HCl (Ondansetron Inj 2 Mg/Ml 2 Ml Vial) 4 mg IV Q4H PRN PRN Reason: Nausea And Vomiting Stop: 01/04/22 20:28 Last Admin: 12/06/21 22:58 Dose: 4 mg
[2021-12-07] MEDS ORDERED: TRIAMCINOLONE ACET 0.1% CR 80 GM TUBE EXT PRN (21:57)
[2021-12-08] MEDS: PROMETHAZINE HCL 6.25 MG in SODIUM CHLORIDE 0.9% 50 ML IV SCH ×4 (04:17→20:53)
[2021-12-08] MEDS ORDERED: ARTIFICIAL TEARS OP OINT 3.5 GM TUBE OP PRN (07:46)
[2021-12-08] MEDS: MECLIZINE HCL 25 MG TAB PO SCH ×3 (08:36→21:03)
[2021-12-08 09:02] LABS: BUN Creatinine Ratio 16.4 (10-20); Calcium 8.8 mg/dl (8.5-10.1); Creatinine Clr Calc Pharmacy 83.9 ml/min; Est GFR (African American) 107.5 ml/min; Est GFR (Non-African American) 92.7 ml/min; Potassium 3.2 mmol/L (3.5-5.1)
[2021-12-08] MEDS: HEPARIN SOD 5,000 UNIT/0.5 ML VIAL SQ SCH ×2 (09:35→21:04)
--- NOTE | 2021-12-08 10:30 | Hospitalist Progress Note ---
Date of Service December 08, 2021 Assessment & Plan (1) Vertigo: Plan: Most consistent with BPPV MRI brain unremarkable Improved after Samantha maneuver by PT. 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 -She takes aspirin 81mg MWF--> will increase to 81mg daily for primary stroke prevention (2) Vomiting: Plan: - due to above -continue scheduled phenergan with improvement of symptoms -PRN zofran (3) Dizziness: (4) Hypokalemia: Plan: -s/p 40mEQ BID x 1 day, repeat BMP tomorrow Right ear fullness, sinus congestion -trial of flonase Left arm rash -patient reports due to poison jhony exposure, hydrocortisone top PRN for pruritis DVT ppx: - teds, scds, heparin subcu CODE: Full code Disposition- Plan for home, Will need OP Vestibular PT, Patient requesting RW--> notified CM. Discharge home tomorrow Admission and Anticipated Discharge Date Admission Date: December 06, 2021 Subjective Vertigo and nausea is improved with current scheduled regimen of Meclizine and Phenergan. However, she is still weak and holds onto furniture when moving around She reports that she will be ready to go home tomorrow when her family and friends are available to come and help her Also complains of right ear fullness, some nasal congestion Physical Exam Physical Exam: Appears improved, able to open her eyes and talk today (prior days she was laying with eyes closed in position) Respiratory: breathing comfortably on room air, no wheezing/rhonchi/rales Cardiovascular: regular rate and rhythm, no murmurs/rubs/gallops Gastrointestinal (Abdomen): soft, non tender, non distended Musculoskeletal: No edema, no cyanosis Neurologic: awake, alert, spontaneously moving extremities Results & Data Results & Data ([facility]) Vital Signs (Past 12 Hours) Vital Signs Temp Pulse Resp BP Pulse Ox 12/08/21 08:22 36.4 C L 56 L 16 147/81 H 99 Laboratory Results BMP 12/08/21 07:40 Sodium 140 Potassium 3.2 L Chloride 102 Carbon Dioxide 30 BUN 12 Creatinine 0.73 Glucose 93 Calcium 8.8 Medications Administered Current Inpatient Medications Acetaminophen (Acetaminophen 325 Mg Tab) 650 mg PO Q4H PRN PRN Reason: Moderate Pain Stop: 01/04/22 20:28 Heparin Sodium (Porcine) (Heparin Sod 5,000 Unit/0.5 Ml Vial) 5,000 units SQ Q12 JONAS Stop: 01/04/22 20:59 Last Admin: 12/08/21 09:35 Dose: 5,000 units Prochlorperazine 10 mg/ (Syringe) 10 mls @ 5 mls/min IV Q6H PRN PRN Reason: Nausea Stop: 01/06/22 09:14 Promethazine HCl 6.25 mg/ (Sodium Chloride) 50.25 mls @ 201 mls/hr IV Q6H [facility] Stop: 01/06/22 09:29 Last Admin: 12/08/21 09:35 Dose: 201 mls/hr Meclizine HCl (Meclizine Hcl 25 Mg Tab) 25 mg PO TID [facility] Stop: 01/06/22 13:59 Last Admin: 12/08/21 08:36 Dose: 25 mg Multi-Ingredient Cream (Artificial Tears Op Oint 3.5 Gm Tube) 1 appln OP TID PRN PRN Reason: dry eyes Stop: 01/07/22 07:45 Last Admin: 12/08/21 09:34 Dose: 1 appln Ondansetron HCl (Ondansetron Inj 2 Mg/Ml 2 Ml Vial) 4 mg IV Q4H PRN PRN Reason: Nausea And Vomiting Stop: 01/04/22 20:28 Last Admin: 12/06/21 22:58 Dose: 4 mg Potassium Chloride (Potassium Chloride Crtab 20 Meq Tabcr) 40 meq PO BID [facility] Stop: 12/08/21 21:01 Triamcinolone Acetonide (Triamcinolone Acet 0.1% Cr 80 Gm Tube) 1 appln EXT BID PRN PRN Reason: Itching Stop: 01/06/22 21:56
[2021-12-08] MEDS: POTASSIUM CHLORIDE CRTAB 20 MEQ TABCR PO SCH ×2 (10:47→21:02)
[2021-12-08] MEDS ORDERED: HYDROCORTISONE 2.5% CR 30 GM TUBE EXT PRN (11:00)
[2021-12-08] MEDS: FLUTICASONE PROPIONATE NA SPR 16 GM BTL SCH ×2 (13:33→21:02)
--- NOTE | 2021-12-08 18:49 | Progress Notes ---
DATE OF SERVICE: 12/08/2021 SUBJECTIVE: I am seeing the patient in followup of vertigo. She is feeling much improved. She note s difficulty with left gaze. No double vision, slurred speech, unilateral weakness or numbness. OBJECTIVE: On exam, turning her head to the right will briefly cross vertigo, which has fatigability . Left gaze is mildly impaired with some horizontal nystagmus. There is symmetric strength. Normal [id number] and [id number]. IMPRESSION: I continued to be concerned about this patient's somewhat atypical symptoms and some dif ficulty with left gaze. Recommend a repeat MRI of the brain to rule out stroke. If that is negative and persistent vertigo persists, then I would recommend that the patient be seen in vestibular clini c. Job ID: [id number]
[2021-12-08] MEDS ORDERED: GADOBUTROL 65ML VIAL IV ONE (22:12)
[2021-12-09] MEDS: PROMETHAZINE HCL 6.25 MG in SODIUM CHLORIDE 0.9% 50 ML IV SCH ×2 (03:46→09:31)
--- NOTE | 2021-12-09 08:38 | Magnetic Resonance Report ---
Brain and bilateral internal artery canal MRI WITH AND WITHOUT CONTRAST HISTORY: persist vertigo, abnormal left gaze,initial mri neg, IAC TECHNIQUE: Multiplanar multisequence MRI of the brain and bilateral internal auditory canals were per formed both before and after the intravenous administration of contrast. COMPARISON STUDY: Head CT 12/04/2021. Brain MRI 12/05/2021. FINDINGS: No areas restricted diffusion to suggest acute infarction. The midline structures are intac t. The ventricles and sulci are within normal limits. There is no mass, hematoma, midline shift, acut e infarct. Mild mucosal thickening within the right maxillary sinus. The mastoid air cells are clear. The major vascular flow-voids at the skull base are well-maintained. Evidence for prior bilateral le ns replacement. There are few scattered punctate foci of T2 hyperintensity within the periventricular white matter. These are nonspecific but favor mild microvascular ischemic change. Postcontrast seque nces show no areas of abnormal enhancement. No masses or abnormal enhancement within the bilateral internal auditory canals. The 7th and 8th cran ial nerves are normal and course and caliber. IMPRESSION: 1. No acute intracranial abnormality. 2. Normal bilateral internal auditory canals. ACT 112: Negative or not required by law. Electronically signed by: Rupesh Carlos M.D. 12/09/2021 8:37 AM
[2021-12-09] MEDS ORDERED: ASPIRIN 81 MG ECTAB PO SCH (09:00)
[2021-12-09] MEDS ORDERED: ASPIRIN/ALUM/MAGNES/CAL CARB 325 MG TAB PO SCH (09:00)
[2021-12-09] MEDS: MECLIZINE HCL 25 MG TAB PO SCH (09:28)
[2021-12-09] MEDS: FLUTICASONE PROPIONATE NA SPR 16 GM BTL SCH (09:29)
[2021-12-09] MEDS: HEPARIN SOD 5,000 UNIT/0.5 ML VIAL SQ SCH (09:29)
--- NOTE | 2021-12-09 14:11 | Discharge Summary ---
Date of Service December 09, 2021 Admission HPI Per Admitting Provider This is a 56 yo F with PMHx of MVP, pulmonic stenosis, cataracts s/p multiple eye injections who presents to the hospital with complaints of dizziness, nausea and vomiting. She has noted worsening vertiginous symptoms including dizziness, nausea and vomiting with minimal movements, and photosensitivity since last Tuesday, she deniess headache or sensitivity to sound. She came to the ER yesterday, 12/04 with similar complaints and was treated with meclizine, Zofran and felt improved but not completely back to baseline and went home. She notes that during her trip in the ER bed to CT scanner, the movements around the hallway with turning exacerbated her symptoms. Her symptoms persisted at home after discharge, and due to continued nausea and vomiting, she came back to the ER. She again today has fears of being moved in bed both on wheels and with literal transfer into another bed from the ER to going upstairs for admission. She has not been able to take any of her home medications for several days now due to his nausea. Pt reports minimal intake of food/drink, and has not had a BM since Tuesday, no changes in urination habits. She has not had any recent viral illnesses, gastrointestinal or respiratory illnesses. Pt denies any issues with walking or standing today. Pt lives at home by herself. Admission Exam Per Admitting Provider General: awake, alert, keeps eyes closed during my exam, does not want to move, laying on her right side in the position. Requests the lights remain off. Thin. Head: Normocephalic, atraumatic ENT: PERRL, EOMI, no pharyngeal exudate, mucous membranes moist Chest: Clear to auscultation, on room air, no adventitious breath sounds Cardiac: Regular rate and rhythm, no murmur, no JVD, normal peripheral pulses, good capillary refill Abdominal: NABS x 4 quadrants, soft, nondistended, nontender to palpation, no rebound or guarding Extremities: Normal inspection, no peripheral edema or erythema, calfs nontender to palpation Psych: Normal mood and affect Neuro: AAO x 3, strength intact bilaterally and rated 4/5, no motor deficits, speech is clear, no peripheral sensory deficits Principal Diagnosis Peripheral vertigo Discharge Exam General: Observed ambulating independently from bathroom to bed, not in distress, on room air HEENT: EOMI, JUSTO, MMM. No nystagmus appreciated today. Chest: Clear breath sounds bilaterally, no wheezes or crackles CVS: Regular rate and rhythm, normal heart sounds, no murmur Abdomen: Soft, non tender, not distended, normal bowel sounds Neuro: Awake, alert, oriented, conversing well, non focal Extremities: No cyanosis, clubbing or edema Discharge Data Allergies Allergy/AdvReac Type Severity Reaction Status Date / Time latex Allergy Mild ALLERGY Verified 12/05/21 15:22 Penicillins Allergy Unknown Unknown Verified 12/05/21 15:22 Consultations 12/05/21 18:06 ED Decision to Admit Stat 12/05/21 19:05 Consult Neurology Routine Ordered Studies 12/05/21 12:45 MRI Brain [MR brain wo con] Stat 12/07/21 10:24 CT angio neck with con Routine 12/08/21 17:55 MR brain IAC wo/w con Routine Laboratory Results WBC 6.14 K/ul (4.8-10.8) 12/06/21 07:27 RBC 4.29 M/uL (3.93-5.22) 12/06/21 07:27 Hgb 12.5 g/dl (12.0-16.0) 12/06/21 07:27 Hct 38.1 % (34.1-44.9) 12/06/21 07:27 MCV 88.8 fL (80.0-100.0) 12/06/21 07:27 MCH 29.1 pg (25.0-34.0) 12/06/21 07:27 MCHC 32.8 g/dL (32.0-36.0) 12/06/21 07:27 RDW Std Deviation 40.2 fL (36.4-46.3) 12/06/21 07:27 RDW Coeff of Jose 12.4 % (11.5-14.5) 12/06/21 07:27 Plt Count 147 K/uL (130-400) 12/06/21 07:27 MPV 12.6 fL (9.4-12.3) H 12/06/21 07:27 Immature Gran % (Auto) 0.3 % 12/05/21 13:06 Neut % (Auto) 80.9 % 12/05/21 13:06 Lymph % (Auto) 13.4 % 12/05/21 13:06 Pettis % (Auto) 5.0 % 12/05/21 13:06 Eos % (Auto) 0.2 % 12/05/21 13:06 Baso % (Auto) 0.2 % 12/05/21 13:06 Neut # (Auto) 5.20 K/uL (1.4-6.5) 12/05/21 13:06 Lymph # (Auto) 0.86 K/uL (1.2-3.4) L 12/05/21 13:06 Pettis # (Auto) 0.32 K/uL (0.24-0.82) 12/05/21 13:06 Eos # (Auto) 0.01 K/uL (0-0.50) 12/05/21 13:06 Baso # (Auto) 0.01 K/uL (0-0.2) 12/05/21 13:06 Immature Gran # (Auto) 0.02 K/uL (0.00-0.02) 12/05/21 13:06 Sodium 140 mmol/L (136-145) 12/08/21 07:40 Potassium 3.2 mmol/L (3.5-5.1) L 12/08/21 07:40 Chloride 102 mmol/L (98-107) 12/08/21 07:40 Carbon Dioxide 30 mmol/L (21-32) 12/08/21 07:40 Anion Gap 8 (3-11) 12/08/21 07:40 BUN 12 mg/dl (6-23) 12/08/21 07:40 Creatinine 0.73 mg/dl (0.6-1.2) 12/08/21 07:40 Est Cr Clr Drug Dosing 83.9 ml/min 12/08/21 07:40 Est GFR ( Amer) 107.5 ml/min 12/08/21 07:40 Est GFR (Non-Af Amer) 92.7 ml/min 12/08/21 07:40 BUN/Creatinine Ratio 16.4 (10-20) 12/08/21 07:40 Glucose 93 mg/dl (70-99(Fasting)) 12/08/21 07:40 Calcium 8.8 mg/dl (8.5-10.1) 12/08/21 07:40 Phosphorus 3.2 mg/dl (2.5-4.9) 12/07/21 07:08 Magnesium 2.0 mg/dl (1.7-2.4) 12/08/21 07:40 Total Bilirubin 0.5 mg/dl (0.2-1.0) 12/06/21 07:27 AST 11 U/L (13-39) L 12/06/21 07:27 ALT 7 U/L (7-52) 12/06/21 07:27 Alkaline Phosphatase 50 U/L (34-104) 12/06/21 07:27 Total Protein 6.0 gm/dl (6.0-8.3) 12/06/21 07:27 Albumin 3.6 gm/dl (3.4-5.0) 12/06/21 07:27 Globulin 2.4 gm/dl (2.5-4.0) L 12/06/21 07:27 Albumin/Globulin Ratio 1.5 (0.9-2) 12/06/21 07:27 TSH 2.759 uIu/ml (0.300-4.500) 12/05/21 15:00 SARS-CoV-2, RNA, NAAT NEGATIVE (NEGATIVE) 12/05/21 17:50 Impressions Brain MRI 12/05/21 12:45 Brain MRI WITHOUT CONTRAST HISTORY: Dizziness. vertigo sx TECHNIQUE: Multiplanar multisequence MRI of the brain was performed without the use of contrast. COMPARISON STUDY: Head CT 12/04/2021. FINDINGS: There are no areas of restricted diffusion to suggest acute infarction. The midline structures are intact. Mild mucosal thickening within the right maxillary sinus. Evidence for prior bilateral lens replacement. There are few scattered punctate foci of T2 hyperintensity seen within the periventricular white matter of the supratentorial brain. These likely represent age-related microvascular ischemic change and are of doubtful clinical significance. The mastoid air cells are clear. The ventricles and sulci are within normal limits for age. There is no mass, hematoma, midline shift. The major vascular flow-voids at the skull base are well maintained. IMPRESSION: No acute intracranial abnormality. ACT 112: Negative or not required by law. Electronically signed by: Rupesh Carlos M.D. 12/05/2021 2:41 PM Neck CTA 12/07/21 10:24 NECK CTA HISTORY: ongoing dizziness TECHNIQUE: Multiaxial CT images of the neck were performed following the intravenous administration of contrast to evaluate the major cervical vessels. Maximum intensity projection images were also obtained. All measurements were calculated based on NASCET criteria. A dose lowering technique was utilized adhering to the principles of ALARA. COMPARISON STUDY: None. FINDINGS: The aortic arch and proximal great vessels are widely patent. There is no significant stenosis, occlusion, or dissection identified within the bilateral common carotid, internal carotid, or vertebral arteries. There is a 7 x 7 x 4 mm saccular aneurysm within the medial aspect of the distal left cervical internal carotid artery. This is approximately 7 mm from the skull base. The lung apices are clear. IMPRESSION: 1. No significant stenosis, occlusion, or dissection identified within the carotid or vertebral arteries. 2. 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 ACT 112: Negative or not required by law. Electronically signed by: Rupesh Carlos M.D. 12/07/2021 12:18 PM Internal Auditory Canal MRI 12/08/21 17:55 Brain and bilateral internal artery canal MRI WITH AND WITHOUT CONTRAST HISTORY: persist vertigo, abnormal left gaze,initial mri neg, IAC TECHNIQUE: Multiplanar multisequence MRI of the brain and bilateral internal auditory canals were performed both before and after the intravenous administration of contrast. COMPARISON STUDY: Head CT 12/04/2021. Brain MRI 12/05/2021. FINDINGS: No areas restricted diffusion to suggest acute infarction. The midline structures are intact. The ventricles and sulci are within normal limits. There is no mass, hematoma, midline shift, acute infarct. Mild mucosal thickening within the right maxillary sinus. The mastoid air cells are clear. The major vascular flow-voids at the skull base are well-maintained. Evidence for prior bilateral lens replacement. There are few scattered punctate foci of T2 hyperintensity within the periventricular white matter. These are nonspecific but favor mild microvascular ischemic change. Postcontrast sequences show no areas of abnormal enhancement. No masses or abnormal enhancement within the bilateral internal auditory canals. The 7th and 8th cranial nerves are normal and course and caliber. IMPRESSION: 1. No acute intracranial abnormality. 2. Normal bilateral internal auditory canals. ACT 112: Negative or not required by law. Electronically signed by: Rupesh Carlos M.D. 12/09/2021 8:37 AM Hospital Course (1) Vertigo: Peripheral vertigo, suspected labyrinthitis MRI brain unremarkable. Repeat MRI brain/IAC unremarkable Improved after Samantha maneuver by PT and on scheduled meclizine tid and q6hr phenergan with significant improvement of symptoms. Seen by neuro and PT/OT. Patient refuses to go to rehab and would like to go home. RW was arranged per per her request. She did not qualify for home health per as she has OP PT. States she will have support at home if she needs. She has already scheduled OP vestibular therapy appointment for Tuesday She is being discharged on meclizine and phenergan which seems to be helping her symptoms well Right ear fullness with tinnitus, sinus congestion- trial of flonase, OP ENT follow up (2) Aneurysm of internal carotid artery: CTA neck shows a saccular aneurysm (7 x 7 x 4 mm) within the distal left cervical internal carotid artery. Seen by Neurology- recommended OP follow up with vascular neurosurgery in 4-6 weeks. Patient was informed of this who will f/u PCP for referral. -She takes aspirin 81mg MWF--> increased to 81mg daily for primary stroke prevention (3) Vomiting: resolved. Discharging on phenergan which is helping her symptoms here. (4) Hypokalemia: repleted Total Time Total Time Spent Total Time Spent (In Minutes): 40 Discharge Plan Discharge Items Patient Disposition: Home - Self-Care Reason For Visit: INTRACTABLE VERTIGO Discharge Diagnosis: Vertigo Activity: Resume your previous activity Non-emergency contact: Primary Care Provider Call non-emergency contact if: you have any medication questions Follow-up/Referrals: Vestibular Physical Therapy [Other] (Clinics that perform Vestibular Therapy: [facility] [address] [place], [address] [facility] [address] [place] [address] ) Alta Garcia PA-C [Primary Care Provider] - 12/11/21 10:40 am (Date & Time 12/11/2021 10:40 AM Provider Viktor Allison MD [facility] ) Diet: Regular Addtl Attending Provider Instructions: Continue meclizine three times daily as needed for vertigo Phenergan three times daily as needed for nausea/vomiting Follow up with outpatient vestibular therapy Take aspirin daily Follow up with ENT You were found to have a saccular aneurysm (7 x 7 x 4 mm) within the left cervical internal carotid artery. Follow up with neurovascular surgery for your aneurysm Pending Studies at Discharge: No Stand-Alone Forms: My [facility], Smoking Cessation Medications and DC Order Prescriptions: New fluticasone propionate 50 mcg/actuation [place],Suspension 1 spray NA BID Qty: 16 0RF meclizine 25 mg Tablet 25 mg PO TID PRN (Reason: prn) Qty: 30 0RF promethazine 12.5 mg tablet 12.5 mg PO TID PRN (Reason: nausea and vomiting) Qty: 30 0RF Continued multivitamin Tablet 1 tab PO DAILY calcium carbonate [Calcium 600] 600 mg calcium (1,500 mg) Tablet 600 mg PO DAILY vitamin E 268 mg (400 unit) Capsule 268 mg PO DAILY ondansetron 4 mg tablet,disintegrating 4 mg PO Q6H PRN (Reason: nausea and vomiting) Qty: 20 0RF Discharge Orders: Discharge Order (Routine); Ordered 12/09/21 Ordered By: Homer Gomes/Other Patient Handouts: Vertigo Medicine Tx, Vertigo Staying Safe Admission Data Admit Date/Time: 12/06/21 18:28 Attending Provider: Homer Oconnell Admit Provider: Amara Alcantar Primary Care Provider: Alta Garcia Other Providers: Amara Alcantar ; Catrina Muro Other Interventions: Discharge Summary Assessment (RN) Last Done: 12/09/21 12:01
== END 2021-12-09 13:20 | disposition home or self-care (01) | DRG 149 ==
LOC: 3N 11:53 → ED 11:53 → SUATTDRO 18:25 → 3N 20:31 → SUATTDRO 12-06 18:28